=== PATIENT | male | born 1950 | race Caucasian/White ===

== ENCOUNTER → 2019-01-15 14:38 | Oncology outpatient (ONC) | payer MEDICARE, SELFPAY ==
[2019-01-15 15:14] VITALS: BP 130/75; PULSE 56; RESP 16; TEMP 36.8; O2SAT 97
--- NOTE | 2019-01-15 15:41 | ONC.CONS ---
History of Present Illness - Data of Consult Consult date: 01/15/19 - Consult Narrative Narrative: Diagnosis: Colon cancer with lung metastases, positive for JOHN mutation, intact MMR Previous treatment: None History of present illness: Fernie Zimmerman is a 68 year old male who has recently moved to the area from [place]. Last spring, he developed some increasing fatigue and paleness. He was found to have iron deficiency anemia. He was on oral iron then referred for a colonoscopy that was performed in March. He was found to have polyp in the sigmoid colon and a mass in the ascending colon. He had a CT scan and a PET scan done that showed enlarging pulmonary nodules. The largest was in the left upper lobe in measured 16 mm. It had an SUV of 6.1. There was also an area of intense uptake in the ascending colon. There were several other smaller pulmonary lesions that were too small to definitively characterize by PET. The biopsy taken at the time of colonoscopy showed high-grade dysplasia that was suspicious for adenocarcinoma in the ascending colon. He had a biopsy of the pulmonary nodule that showed adenocarcinoma consistent with a GI primary. Testing on the lung sample was insufficient for further genetic evaluation however the biopsy sample from the colon did show intact mismatch repair and did have a JOHN mutation. The patient has been using alternative therapy with CBD or Jimbo Vaughan oil since last fall. He reports that he has been tolerating it quite well and overall feels better than he has in years. He denies any pain. His appetite has been good. He is not losing any weight. His bowels have been moving normally. He denies any shortness of breath or cough. Patient reports that his CEA has been stable and his other lab work has been good. He did have follow-up CT scans that have shown stability of his disease. He was recently moved back to this area from [place]. He did grow up here. His past medical history is notable for some prior pneumonia. He has had trauma as a young man with multiple scars on his scalp. He also had an accident with a tractor as a teenager that required hospitalization.] He is not currently taking any prescription medications but does take iron and a multivitamin in addition to CBD. He denies any drug allergies. His family history is notable for brother who had colorectal cancer. Another brother had lung cancer his father had lung cancer. Social history: He is . He is retired music professor. He and his just recently moved back to this area. He has a distant history of tobacco but quit many years ago. He does not drink alcohol. CC: Se Arroyo MD Home Medications and Allergies Home Medications Medication Instructions Recorded Confirmed Type ferrous sulfate 65 DAILY 01/15/19 History multivitamin 1 tab PO DAILY 01/15/19 01/15/19 History Allergies Allergy/AdvReac Type Severity Reaction Status Date / Time No Known Drug Allergies Allergy Verified 01/15/19 15:03 Review of Systems - Patient Self-Reported Symptoms SR Musculoskeletal issues: Back or neck pain Constitutional: able to conduct usual activities, normal activity level, normal exercise tolerance, no weight loss Cardiovascular: no chest pain, no dyspnea on exertion Respiratory: no shortness of breath Gastrointestinal: no change in appetite, no abdominal pain, no constipation, no diarrhea Musculoskeletal: no pain Exam Vital signs: Vital Signs Temp Pulse Resp BP Pulse Ox 01/15/19 15:14 98.2 F 56 L 16 130/75 97 Intake and Output 01/14/19 01/15/19 01/15/19 23:59 07:59 15:59 Other: Weight 97.7 kg Patient Weight 01/15/19 23:59 Weight 97.7 kg - Constitutional positive no acute distress, positive average body habitus - Routine HEENT Exam Head: Present: normocephalic, atraumatic Eye: Present: EOMI, PERRL. Absent: conjunctival icterus, scleral injection ENT: Present: mucous membranes moist, oropharynx clear, dentition normal - Routine Neck Exam Present: supple. Absent: lymphadenopathy, thyromegaly - Routine Respiratory Exam Present: Clear to auscultation bilaterally. Absent: rales, wheezes - Routine Cardiovascular Exam Present: RRR, S1, S2. Absent: murmur - Routine Abdominal Exam Present: soft, normoactive bowel sounds. Absent: tenderness, organomegaly, mass - Routine Extremities Exam Absent: cyanosis, clubbing, edema - Routine Back/Spine Exam Back/Spine: Absent: vertebral tenderness - Routine Skin Exam Present: intact. Absent: cyanosis, erythema, petechiae, rash - Routine Neurological Exam Present: alert, oriented X3 - Routine Psychiatric Exam Present: normal affect, normal thought process Assessment and Plan (1) Colon cancer metastasized to lung Current visit: Yes Status: Acute 68-year-old man with a history of metastatic colon cancer. He has not had any chemotherapy but has been using alternative therapies for nearly a year. Clinically, he has been stable and feels well. will plan on getting a CT scan of the chest abdomen pelvis to assess the status of his disease. He will return to clinic in about 3 weeks or so for follow-up. He is clinically stable, I suspect that he will want to continue with his alternative treatment. If he does have evidence of progression, I think he would be a candidate for chemotherapy. He does have a mutation in JOHN which would predict a lack of response to EGFR directed therapies. He instead could be treated with either FOLFIRI or FOLFOX with Avastin. I did explain that the mutation predicted a poor response to chemotherapy in a shorter response in patients without a JOHN mutation, but that the mutation did not preclude any benefit to chemotherapy. He will return to clinic in about 3 weeks or so for follow-up
--- NOTE | 2019-01-16 15:15 | ONC.MSW ---
Late Entry: Visit 01/15/19 Description: Met with pt/spouse to introduce myself as the ONC UTILITY MECHANIC SUPERVISOR/patient navigation services. Pt indicated that finances are his primary concern at this time. He is disabled, but has not yet applied for Social Security Disability, although he is intending to do this once he has spent down some of his savings. He has straight Medicare, parts A and B only, with no Part D or Medigap plan. This visit was brief due to provider's readiness to begin initial consult visit. 01/16/19-UTILITY MECHANIC SUPERVISOR T/C to patient to continue discussion re: financial support available. See Oncology Psychosocial Assessment attached for more info. Completed a Medical Marijuana Authorization form, which patient will p/u later this week. Discussed availability of emotional/coping support for adjustment to treatment, as well as information relating to applying for disability. Will plan to continue to apply for financial assistance grants as they become available. Will plan to meet with pt after his next provider visit appointment to discuss assisting with funding for chemotherapy medications as prescribed. No additional needs indicated at this time.
--- NOTE | 2019-02-04 09:22 | ONC.SCHED ---
Patient's spouse called and said they did not click with Dr. Arroyo and said they wanted to go to a different clinic. I did let her know that we have Dr. Elizabeth here that she could see. They I think will think about it.
--- NOTE | 2019-02-14 09:35 | ONC.MSW ---
Description: T/C from Hospice Activity: Hospice called requesting clinicals be faxed. Pt is being admitted for hospice services. Faxed records per their request.
--- NOTE | 2019-07-08 15:39 | ONC.SCHED ---
[facility] faxed lab orders for patient to have drawn in our clinic. Patient does not have a port or a picc line. I called the patient and adivsed that I would fax the orders down to the main lab and he can present there to complete. Patient voiced understanding. Labs have been faxed to main registration.
== END ==
DX: C18.9 Malignant neoplasm of colon, unspecified (principal); C78.02 Secondary malignant neoplasm of left lung
CPT/HCPCS: 99204; 99214

== ENCOUNTER → 2019-01-18 09:58 | Outpatient (CLI) | payer MEDICARE, SELFPAY ==
[2019-01-18 10:19] LABS: Add Manual Diff / Slide Review NO; Basophils Absolute Auto 0 /uL (0-100); Basophils Percent Auto 0.5 % (0-2); Eosinophils Absolute Auto 100 /uL (0-450); Eosinophils Percent Auto 1.1 % (2-4); Hematocrit 39.8 % (41-53); Hemoglobin 13.6 g/dL (13.5-17.5); Lymphocytes Absolute Auto 1000 /uL (1100-4500); Lymphocytes Percent Auto 16.7 % (25-40); Mean Corpuscular HGB Conc 34.2 % (30-36); Mean Corpuscular Hemoglobin 32.6 PG (26-34); Mean Corpuscular Volume 95.2 fL (80-100); Monocytes Absolute Auto 600 /uL (0-900); Monocytes Percent Auto 9.7 % (3-14); Neutrophils Absolute Auto 4500 /uL (1500-7000); Platelet Count 340 X10^3/uL (150-400); Red Blood Cell Count 4.18 X10^6/uL (4.5-5.9); Red Cell Distribution Width 13.7 % (11.6-14.8); White Blood Cell Count 6.3 X10^3/uL (4.5-11.0)
[2019-01-18 10:34] LABS: Alanine Aminotransferase 16 IU/L (21-72); Albumin 3.8 g/dL (3.5-5.0); Albumin Globulin Ratio 1.3 (1.0-2.8); Alkaline Phosphatase 49 U/L (38-126); Aspartate Aminotransferase 17 IU/L (17-59); Bilirubin Total 0.6 mg/dL (0.2-1.3); Blood Urea Nitrogen 18 mg/dL (9-20); Calcium 8.7 mg/dL (8.4-10.2); Carbon Dioxide 28 mmol/L (22-32); Chloride 103 mmol/L (98-107); Estimated Glomerular Filt Rate > 60.0 mL/min (>60); Globulin 2.9 g/dL (1.7-4.1); Glucose 96 mg/dL (80-110); HEMOLYSIS < 15 (0-50); Potassium 4.1 mmol/L (3.4-5.1); Sodium 138 mmol/L (137-145); Total Protein 6.7 g/dL (6.3-8.2)
[2019-01-18 11:04] LABS: Carcinoembryonic Antigen 3.4 ng/mL (0.1-3.0)
--- NOTE | 2019-01-18 11:09 | DI.CT.S_ITS ---
PROCEDURE: CT CHEST ABD PEL W CON INDICATIONS: Restaging colon cancer TECHNIQUE: After the administration of oral and intravenous contrast, 5 mm thick sections acquired from the lung apices to the symphysis. 5 mm coronal and sagittal reformats were performed, with additional 7 mm coronal MIP reformats through the lungs. For radiation dose reduction, the following was used: automated exposure control, adjustment of mA and/or kV according to patient size. COMPARISON: Reportedly there are prior studies from [facility] in [facility]. No comparison studies are available at the time of interpretation. An addendum can be provided when comparison studies are located.. FINDINGS: Image quality: Excellent. CHEST: Lungs and pleura: No acute consolidation however there are multiple lung masses and nodules the largest measuring approximately 3.5 cm in the left upper lobe on image 22 series 5. Adjacent satellite nodules are noted. Represented 1.1 x 1.4 cm nodule also noted in the right upper lobe on image 26 series 5. There are smaller bibasilar pulmonary nodules. Additional anterior right upper lobe nodule measuring 1.0 cm on image 21 series 5. No pleural effusions or pneumothorax. Central and peripheral airways appear patent and normal in caliber. Mediastinum: Heart size is normal. No pericardial effusion. No mediastinal or hilar adenopathy by size criteria. Thoracic aorta and central pulmonary arteries are normal in size. Esophagus is normal in caliber. Small hiatal hernia. Chest wall: No axillary or supraclavicular adenopathy by size criteria. Thyroid gland grossly unremarkable. ABDOMEN: Solid organs: 1.4 cm hypodense ill-defined lesion seen in the right lobe on image 58 series 2 concerning for early hepatic metastases. Diffuse hepatic steatosis. Gallbladder contains a 1 mm calcification on image 62 series 2 in keeping with incidental cholelithiasis. Biliary system is non dilated. Pancreas enhances normally. Spleen is normal in size and enhancement. No adrenal nodules. Kidneys demonstrate normal size and enhancement, without hydronephrosis. Peritoneum and bowel: Ill-defined circumferential wall thickening involving the cecum/ascending colon, for example image 87 series 2. There is adjacent inflammatory fat stranding and shotty lymph nodes. No evidence of bowel obstruction identified. No free fluid or air. Colonic diverticulosis is seen without evidence of acute complication. Rectum is grossly unremarkable The appendix is within normal limits Nodes and vessels: No retroperitoneal or mesenteric adenopathy by size criteria. Aorta and inferior vena cava are normal in size. Miscellaneous: Fat-containing midline and right paramedian ventral hernia noted. PELVIS: Genitourinary: Bladder wall thickness is normal. Miscellaneous: No inguinal hernias or adenopathy. Bones: No suspicious bony lesions. No vertebral body compression fractures. IMPRESSION: Large cecal/ascending colonic mass. Shotty subcentimeter adjacent lymph nodes noted concerning for regional early metastases although technically nonspecific. Hypodense lesion involving the right hepatic lobe concerning for hepatic metastasis. Multiple bilateral pulmonary nodules and mass lesions in keeping with pulmonary metastases. Additional chronic and incidental findings as above. Dictated by: Twin Trujillo M.D. on 01/21/2019 at 15:45 Approved by: Twin Trujillo M.D. on 01/21/2019 at 15:55
== END ==
DX: C18.9 Malignant neoplasm of colon, unspecified (principal); C78.02 Secondary malignant neoplasm of left lung; K44.9 Diaphragmatic hernia without obstruction or gangrene; K76.0 Fatty (change of) liver, not elsewhere classified; K76.9 Liver disease, unspecified; K80.20 Calculus of gallbladder without cholecystitis without obstruction; K57.90 Diverticulosis of intestine, part unspecified, without perforation or abscess without bleeding; K43.9 Ventral hernia without obstruction or gangrene
CPT/HCPCS: 36415; 71260; 74177; 80053; 82378; 85025; Q9967

== ENCOUNTER → 2019-07-10 09:05 | Outpatient (CLI) | payer MEDICARE, SELFPAY ==
[2019-07-10 10:08] LABS: Ammonia (NH3) < 9.0 umol/L (9-30)
[2019-07-10 10:56] LABS: Add Manual Diff / Slide Review NO; Basophils Absolute Auto 100 /uL (0-100); Basophils Percent Auto 0.6 % (0-2); Eosinophils Absolute Auto 100 /uL (0-450); Eosinophils Percent Auto 0.9 % (2-4); Hematocrit 42.4 % (41-53); Hemoglobin 14.7 g/dL (13.5-17.5); Lymphocytes Absolute Auto 1200 /uL (1100-4500); Lymphocytes Percent Auto 13.3 % (25-40); Mean Corpuscular HGB Conc 34.6 % (30-36); Mean Corpuscular Hemoglobin 33.5 PG (26-34); Mean Corpuscular Volume 96.8 fL (80-100); Monocytes Absolute Auto 600 /uL (0-900); Neutrophils Absolute Auto 6900 /uL (1500-7000); Neutrophils Percent Auto 78.2 % (50-75); Platelet Count 330 X10^3/uL (150-400); Red Blood Cell Count 4.38 X10^6/uL (4.5-5.9); Red Cell Distribution Width 12.7 % (11.6-14.8); White Blood Cell Count 8.8 X10^3/uL (4.5-11.0)
[2019-07-10 11:04] LABS: Alanine Aminotransferase 13 IU/L (<50); Albumin Globulin Ratio 1.3 (1.0-2.8); Alkaline Phosphatase 63 U/L (38-126); Aspartate Aminotransferase 21 IU/L (17-59); BUN Creatinine Ratio 15.6 (6-22); Bilirubin Total 0.6 mg/dL (0.2-1.3); Blood Urea Nitrogen 14 mg/dL (9-20); Calcium 9.2 mg/dL (8.4-10.2); Carbon Dioxide 28 mmol/L (22-32); Chloride 103 mmol/L (98-107); Estimated Glomerular Filt Rate > 60.0 mL/min (>60); Glucose 93 mg/dL (80-110); HEMOLYSIS < 15 (0-50); Potassium 4.3 mmol/L (3.4-5.1); Sodium 140 mmol/L (137-145)
== END ==
PROVIDERS: Visit Provider Internal Medicine
DX: C18.9 Malignant neoplasm of colon, unspecified (principal); C78.00 Secondary malignant neoplasm of unspecified lung; C78.7 Secondary malignant neoplasm of liver and intrahepatic bile duct; F99 Mental disorder, not otherwise specified
CPT/HCPCS: 36415; 80053; 82140; 85025